=== PATIENT | male | born 1985 | race Caucasian/White ===

== ENCOUNTER 2018-02-21 21:29 | Emergency (ER) | payer SELFPAY ==
[2018-02-21 23:21] LABS: Urine Blood TRACE (NEG); Urine Glucose NEGATIVE (NEG); Urine Protein NEGATIVE (NEG); Urine pH 5.5 (5.0-7.0)
[2018-02-21] MEDS ORDERED: BISACODYL E.C. 5 MG TAB PO ONE (23:21)
[2018-02-21] MEDS ORDERED: BISACODYL 10 MG RECTAL SUPP ONE (23:21)
[2018-02-21 23:26] LABS: Urine Bacteria <20 /HPF (NONE SEEN); Urine Culture Reflex Order NOT NEEDED; Urine Mucus SLIGHT /HPF (NONE SEEN); Urine RBC <5 /HPF (NONE SEEN)
[2018-02-22] MEDS ORDERED: KETOROLAC 30 MG/ML INJ ONE (00:13)
--- NOTE | 2018-02-22 00:14 | EDPHYS ---
Physician Documentation [facility] Name: Lukasz Simon Age: 32 yrs Sex: Male : 1985 Arrival Date: 02/21/2018 Time: 21:33 Bed 16 Private MD: ED Physician Eleuterio Beverly HPI: 02/21 22:34 This 32 yrs old Male presents to ER via Ambulatory with complaints of Back snw Pain, Swollen Side of Abdomen. 22:34 The patient presents with pain that is acute, and decreased range of motion. The snw symptoms are located in the low back. Onset: The symptoms/episode began/occurred gradually, 1 week(s) ago, and became persistent. The problem was sustained from unknown cause. Severity of symptoms: At their worst the symptoms were moderate, severe. The patient has not experienced similar symptoms in the past. The patient has not recently seen a physician. Historical: - Allergies: 21:44 PENICILLINS; ak1 - Home Meds: 21:44 None [Active]; ak1 - PMHx: 21:44 None; ak1 - PSHx: 21:44 sinus sx as a child; ak1 - Immunization history:: Adult Immunizations unknown. - Social history:: Smoking status: Patient/guardian denies using tobacco. ROS: 22:33 Constitutional: Negative for fever, chills, and weight loss, Eyes: Negative for injury, snw pain, redness, and discharge, ENT: Negative for injury, pain, and discharge, Neck: Negative for injury, pain, and swelling, Cardiovascular: Negative for chest pain, palpitations, and edema, Respiratory: Negative for shortness of breath, cough, wheezing, and pleuritic chest pain, Abdomen/GI: Negative for abdominal pain, nausea, vomiting, diarrhea, and constipation, MS/Extremity: Negative for injury and deformity, Skin: Negative for injury, rash, and discoloration, Neuro: Negative for headache, weakness, numbness, tingling, and seizure. 22:33 Constitutional: Negative for fever, chills, and weight loss. 22:33 Back: Positive for decreased range of motion, pain with movement, of the low back area. 22:33 : Positive for small amounts, Negative for injury or acute deformity. Exam: 22:32 Constitutional: This is a well developed, well nourished patient who is awake, alert, snw and in no acute distress. Head/Face: Normocephalic, atraumatic. Eyes: Pupils equal round and reactive to light, extra-ocular motions intact. Lids and lashes normal. Conjunctiva and sclera are non-icteric and not injected. Cornea within normal limits. Periorbital areas with no swelling, redness, or edema. ENT: Nares patent. No nasal discharge, no septal abnormalities noted. Tympanic membranes are normal and external auditory canals are clear. Oropharynx with no redness, swelling, or masses, exudates, or evidence of obstruction, uvula midline. Mucous membranes moist. Neck: Trachea midline, no thyromegaly or masses palpated, and no cervical lymphadenopathy. Supple, full range of motion without nuchal rigidity, or vertebral point tenderness. No Meningismus. Chest/axilla: Normal chest wall appearance and motion. Nontender with no deformity. No lesions are appreciated. Cardiovascular: Regular rate and rhythm with a normal S1 and S2. No gallops, murmurs, or rubs. Normal PMI, no JVD. No pulse deficits. Respiratory: Lungs have equal breath sounds bilaterally, clear to auscultation and percussion. No rales, rhonchi or wheezes noted. No increased work of breathing, no retractions or nasal flaring. Abdomen/GI: Soft, non-tender, with normal bowel sounds. No distension or tympany. No guarding or rebound. No evidence of tenderness throughout. Skin: Warm, dry with normal turgor. Normal color with no rashes, no lesions, and no evidence of cellulitis. MS/ Extremity: Pulses equal, no cyanosis. Neurovascular intact. Full, normal range of motion. Neuro: Awake and alert, GCS 15, oriented to person, place, time, and situation. Cranial nerves II-XII grossly intact. Motor strength 5/5 in all extremities. Sensory grossly intact. Cerebellar exam normal. Normal gait. 22:32 Abdomen/GI: Soft, mildly tender, with normal bowel sounds. No distension or tympany. No guarding or rebound. No evidence of tenderness throughout. 22:32 Back: pain, that is moderate, muscle spasm, is appreciated in the low back area. Vital Signs: 21:44 BP 132 / 88; Pulse 99; Resp 20; Temp 98.1(TE); Pulse Ox 100% on R/A; Weight 108.86 kg ak1 (R); Height 6 ft. 3 in. (190.50 cm) (R); Pain 7/10; 22:29 BP 109 / 67; Pulse 83; Resp 18; Pulse Ox 100% on R/A; ea 23:30 BP 112 / 69; Pulse 74; Resp 18; Pulse Ox 98% on R/A; ea 02/22 00:00 BP 116 / 75; Pulse 79; Resp 18 S; Pulse Ox 98% on R/A; ea 02/21 21:44 Body Mass Index 30.00 (108.86 kg, 190.50 cm) ak1 MDM: 02/21 22:24 Patient medically screened. snw 02/22 00:17 Data reviewed: vital signs, nurses notes. Data interpreted: Pulse oximetry: on room air snw is 100 %. Interpretation: normal. Counseling: I had a detailed discussion with the patient and/or guardian regarding: the historical points, exam findings, and any diagnostic results supporting the discharge/admit diagnosis, lab results, the need for outpatient follow up, for definitive care, to return to the emergency department if symptoms worsen or persist or if there are any questions or concerns that arise at home. Special discussion: Based on the history and exam findings, there is no indication for further emergent testing or inpatient evaluation. I discussed with the patient/guardian the need to see the primary care provider for further evaluation of the symptoms. 02/21 22:23 Order name: Urine Microscopic Only; Complete Time: 23:34 snw 02/21 23:04 Order name: Urine Dipstick--Ancillary (enter results); Complete Time: 23:25 em1 02/21 22:23 Order name: CT Stone Protocol snw 02/21 22:23 Order name: Urine Dipstick-Ancillary (obtain specimen); Complete Time: 22:59 snw Administered Medications: 02/21 23:29 Drug: Bisacodyl 10 mg Route: PO; ea 02/22 00:19 Follow up: Response: No adverse reaction ea 00:18 Drug: TORadol 60 mg Route: IM; Site: left gluteus; ea 00:34 Follow up: Response: No adverse reaction ea 00:19 Not Given (Patient Refused): Dulcolax Suppository 10 mg ID once ea Disposition: 01:37 Co-signature as Attending Physician, Eleuterio Beverly MD. toño Disposition: 02/22/18 00:13 Discharged to Home. Impression: Low back pain, Constipation. - Condition is Stable. - Discharge Instructions: Back Pain, Adult, Constipation, Adult, High-Fiber Diet, Musculoskeletal Pain, Back Exercises, Badp-xb-Riew, Cryotherapy, Rehydration, Adult, Heat Therapy, Heat Therapy, [id number]. - Prescriptions for Diclofenac Sodium 75 mg Oral Tablet Sustained Release - take 1 tablet by ORAL route 2 times per day; 30 tablet. Miralax 17 gram/dose Oral - take 1 packet by ORAL route once daily dilute powder in 8 ounces of water or juice; 1 box. - Work release form, Medication Reconciliation Form, Thank You Letter, Antibiotic Education, Prescription Opioid Use form. - Follow up: Private Physician; When: 2 - 3 days; Reason: Recheck today's complaints, Continuance of care, Re-evaluation by your physician. Follow up: Emergency Department; When: As needed; Reason: Worsening of condition. Signatures: Dispatcher [employer] EDAK Eleuterio Beverly MD MD pkl Therrien, Shelly, SENIOR TALENT ACQUISITION SPECIALIST-C SENIOR TALENT ACQUISITION SPECIALIST-Csnw Maddi Vázquez RN RN ak1 Shital Hogan RN RN ea Corrections: (The following items were deleted from the chart) 00:34 00:13 02/22/2018 00:13 Discharged to Home. Impression: Low back pain; Constipation. ea Condition is Stable. Forms are Medication Reconciliation Form, Thank You Letter, Antibiotic Education, Prescription Opioid Use. Follow up: Private Physician; When: 2 - 3 days; Reason: Recheck today's complaints, Continuance of care, Re-evaluation by your physician. Follow up: Emergency Department; When: As needed; Reason: Worsening of condition. snw
--- NOTE | 2018-02-22 00:14 | ER ---
Nurse's Notes [facility] Name: Lukasz Simon Age: 32 yrs Sex: Male : 1985 Arrival Date: 02/21/2018 Time: 21:33 Bed 16 Private MD: Diagnosis: Low back pain;Constipation Presentation: 02/21 21:42 Presenting complaint: Patient states: back pain X1 week. pt stated his left side of his ak1 abd is swollen, pt c/o right flank is swollen. pt stated he has a decrease in urine flow. pt has been taking muscle relaxer from PCP. Transition of care: patient was not received from another setting of care. Onset of symptoms is unknown. Initial Sepsis Screen: Does the patient meet any 2 criteria? No. Patient's initial sepsis screen is negative. Does the patient have a suspected source of infection? No. Patient's initial sepsis screen is negative. Care prior to arrival: None. 21:42 Method Of Arrival: Ambulatory ak1 21:42 Acuity: JULIANA 3 ak1 Triage Assessment: 21:44 General: Appears uncomfortable, Behavior is calm, cooperative. Pain: Complains of pain ak1 in back and abdomen. EENT: No signs and/or symptoms were reported regarding the EENT system. Neuro: No deficits noted. Cardiovascular: No deficits noted. Respiratory: No deficits noted. GI: Abdomen is round Bowel sounds present X 4 quads. : Reports decreased urine flow. Derm: No signs and/or symptoms reported regarding the dermatologic system. Musculoskeletal: Range of motion: limited in back. Historical: - Allergies: 21:44 PENICILLINS; ak1 - Home Meds: 21:44 None [Active]; ak1 - PMHx: 21:44 None; ak1 - PSHx: 21:44 sinus sx as a child; ak1 - Immunization history:: Adult Immunizations unknown. - Social history:: Smoking status: Patient/guardian denies using tobacco. Screenin:45 Abuse screen: Denies threats or abuse. Denies injuries from another. Nutritional ak1 screening: No deficits noted. Tuberculosis screening: No symptoms or risk factors identified. Fall Risk None identified. Assessment: 22:26 General: Appears uncomfortable, Behavior is calm, cooperative, appropriate for age. ea Pain: Complains of pain in low back area, left low back, right low back, posterior aspect of left lateral abdomen and posterior aspect of right lateral abdomen Pain currently is 6 out of 10 on a pain scale. Quality of pain is described as aching, Pain began last friday. Neuro: Level of Consciousness is awake, alert, obeys commands, Oriented to person, place, time, situation. Cardiovascular: Patient's skin is warm and dry. Respiratory: Airway is patent Respiratory effort is even, unlabored, Respiratory pattern is regular, symmetrical. GI:. : Reports burning with urination, dribbling. Derm: Skin is pink, warm \T\ dry. 23:00 Reassessment: Patient and/or family updated on plan of care and expected duration. Pain ea level reassessed. Patient is alert, oriented x 3, equal unlabored respirations, skin warm/dry/pink. 02/22 00:29 Reassessment: Patient and/or family updated on plan of care and expected duration. Pain ea level reassessed. Patient is alert, oriented x 3, equal unlabored respirations, skin warm/dry/pink. Discharge instructions given to patient, verbalized understanding of instruciton. Vital Signs: 02/21 21:44 BP 132 / 88; Pulse 99; Resp 20; Temp 98.1(TE); Pulse Ox 100% on R/A; Weight 108.86 kg ak1 (R); Height 6 ft. 3 in. (190.50 cm) (R); Pain 7/10; 22:29 BP 109 / 67; Pulse 83; Resp 18; Pulse Ox 100% on R/A; ea 23:30 BP 112 / 69; Pulse 74; Resp 18; Pulse Ox 98% on R/A; ea 02/22 00:00 BP 116 / 75; Pulse 79; Resp 18 S; Pulse Ox 98% on R/A; ea 02/21 21:44 Body Mass Index 30.00 (108.86 kg, 190.50 cm) ak1 ED Course: 02/21 21:33 Patient arrived in ED. do 21:43 Triage completed. ak1 21:44 Arm band placed on Patient placed in waiting room, Patient notified of wait time. ak1 21:45 Patient has correct armband on for positive identification. ak1 22:15 Shital Hogan, RIO is Primary Nurse. ea 22:22 Thea Bonds FNP-C is PHCP. snw 22:22 Eleuterio Beverly MD is Attending Physician. snw 22:46 CT completed. Patient moved to CT via wheelchair. Patient moved back from CT. cw1 22:52 CT Stone Protocol In Process Unspecified. EDMS 02/22 00:19 No provider procedures requiring assistance completed. Patient did not have IV access ea during this emergency room visit. Administered Medications: 02/21 23:29 Drug: Bisacodyl 10 mg Route: PO; ea 02/22 00:19 Follow up: Response: No adverse reaction ea 00:18 Drug: TORadol 60 mg Route: IM; Site: left gluteus; ea 00:34 Follow up: Response: No adverse reaction ea 00:19 Not Given (Patient Refused): Dulcolax Suppository 10 mg WA once ea Outcome: 00:13 Discharge ordered by . snw 00:32 Discharged to home ambulatory. ea 00:32 Condition: improved 00:32 Discharge instructions given to patient, Instructed on discharge instructions, follow up and referral plans. medication usage, Demonstrated understanding of instructions, follow-up care, medications, Prescriptions given X 2. 00:34 Patient left the ED. ea Signatures: Dispatcher [employer] EDMA Thea Bonds, TSO-C TSO-Csnw Rhea Bennett cw1 Maddi Vázquez, RN RN ak1 Mary Grace Lucero Elena, RN RN ea
--- NOTE | 2018-02-22 14:44 | RAD REPORT ---
EXAM DESCRIPTION: CT - Stone Protocol - 02/22/2018 6:34 am CLINICAL HISTORY: Flank pain. COMPARISON: None. TECHNIQUE: Axial images were obtained without oral or IV contrast. Lack of contrast limits solid org an and vascular assessment. The [id number] spans the entirety of the system partially obscuring uppermost abdomen and lung bases. Coronal reformatted images were obtained and reviewed. All CT scans are performed using dose optimization technique as appropriate and may include automated exposure control or mA/KV adjustment according to patient size. FINDINGS: The lower lung gonzales are clear. Imaged portions of the liver and spleen show no suspicious findings on non-contrast imaging. The panc reas and adrenal glands are normal. No pathologic lymphadenopathy in the abdomen or pelvis. No urinary tract stones or obstructive uropathy. No bowel obstruction, free air, free fluid or abscess. Normal appendix noted. L5-S1 mild to moderate spondylosis. IMPRESSION: No urinary tract stones or obstructive uropathy.
== END 2018-02-22 00:34 | disposition home or self-care (01) ==
LOC: ER 21:29
DX: K59.00 Constipation, unspecified (principal); Z88.0 Allergy status to penicillin
CPT/HCPCS: 74176; 76377; 81003; 81015; 96372; 99284

== ENCOUNTER 2020-04-17 01:41 | Emergency (ER) | payer OTHER, SELFPAY ==
[2020-04-17] MEDS ORDERED: TETANUS & DIPHTHERIA TOX,ADULT 0.5 ML VIAL ONE (02:12)
--- NOTE | 2020-04-17 02:21 | ER ---
Nurse's Notes [facility] Name: Lukasz Simon Age: 34 yrs Sex: Male : 1985 Arrival Date: 04/17/2020 Time: 01:42 Bed 15 Private MD: Diagnosis: Displaced fracture of distal phalanx of right little finger Presentation: 04/17 01:47 Chief complaint: EMS states: his right hand was stucked in the conveyor belt and mg2 sustained laceration in the right little finger and swelling in the right hand. Coronavirus screen: Proceed with normal triage. Patient denies a cough. Patient denies shortness of breath or difficulty breathing. Patient denies measured and/or subjective temperature greater than 100.4F prior to today's visit. Patient denies travel on a cruise ship or to a country the [facility] currently lists as an affected area. Patient denies contact with known and/or suspected case of COVID-19. Ebola Screen: No symptoms or risks identified at this time. Initial Sepsis Screen: Does the patient meet any 2 criteria? No. Patient's initial sepsis screen is negative. Does the patient have a suspected source of infection? No. Patient's initial sepsis screen is negative. Risk Assessment: Do you want to hurt yourself or someone else? Patient reports no desire to harm self or others. Onset of symptoms was April 17, 2020. 01:47 Method Of Arrival: EMS: [facility] [place] 01:[place] Acuity: JULIANA 3 mg2 Triage Assessment: 01:52 General: Appears in no apparent distress. comfortable, Behavior is calm, cooperative. mg2 Pain: Complains of pain in right hand Pain currently is 2 out of 10 on a pain scale. Quality of pain is described as aching, Pain began suddenly, 1 hour ago. Is intermittent. EENT: No signs and/or symptoms were reported regarding the EENT system. Neuro: Level of Consciousness is awake, alert, obeys commands, Oriented to person, place, time, situation. Cardiovascular: Capillary refill < 3 seconds Patient's skin is warm and dry. Respiratory: Airway is patent Respiratory effort is even, unlabored, Respiratory pattern is regular, symmetrical. GI: No signs and/or symptoms were reported involving the gastrointestinal system. : No signs and/or symptoms were reported regarding the genitourinary system. Derm: Wound noted right little finger Wound is laceration approx. 1 inch long, with small active bleeding. Musculoskeletal: Circulation, motion, and sensation intact. Capillary refill < 3 seconds, Swelling present in right hand. Injury Description: Laceration. Historical: - Allergies: 01:51 PENICILLINS; mg2 01:51 Codeine; mg2 - Home Meds: 01:51 Celexa Oral [Active]; cholesterol medicine [Active]; mg2 - PMHx: 01:51 Anxiety; Hyperlipidemia; mg2 - PSHx: 01:51 None; mg2 - Immunization history:: Last tetanus immunization: < 5 years ago Flu vaccine is not up to date. - Social history:: Smoking status: Patient denies any tobacco usage or history of. Patient uses alcohol, occasionally. Patient/guardian denies using street drugs, IV drugs, The patient lives alone. - Family history:: not pertinent. Screenin:54 Abuse screen: Denies threats or abuse. Denies injuries from another. Nutritional mg2 screening: No deficits noted. Tuberculosis screening: No symptoms or risk factors identified. Fall Risk None identified. Assessment: 01:54 General: see triage note. mg2 Vital Signs: 01:47 BP 134 / 95; Pulse 90; Resp 18; Temp 99; Pulse Ox 100% on R/A; Weight 106.59 kg; Height mg2 6 ft. 3 in. (190.50 cm); Pain 2/10; 03:04 BP 133 / 78; Pulse 80; Resp 18; Temp 98; Pulse Ox 100% on R/A; mg2 01:47 Body Mass Index 29.37 (106.59 kg, 190.50 cm) mg2 ED Course: 01:42 Patient arrived in ED. mg2 01:46 Vance Thompson MD is Attending Physician. ma2 01:47 Db Ayers, RIO is Primary Nurse. mg2 01:49 Triage completed. mg2 01:52 Arm band placed on. EKG completed in triage. Results shown to MD. mg2 01:54 Patient has correct armband on for positive identification. mg2 01:54 Patient did not have IV access during this emergency room visit. mg2 02:18 XRAY Hand RIGHT 3 View In Process Unspecified. EDMS 02:19 Wrist Right 3 View XRAY In Process Unspecified. EDMS 03:03 No provider procedures requiring assistance completed. Aluminum finger splint applied mg2 to right little finger. Wound care: to crushed injury in the right little finger, surgicel applied with coband. Administered Medications: 02:10 Drug: Tetanus-Diphtheria Toxoid Adult 0.5 ml {Print And Pattern Designer: [employer]. Exp: mg2 12/03/2021. Lot #: [id number]. } Route: IM; Site: right deltoid; 02:41 Follow up: Response: No adverse reaction mg2 02:42 Drug: Clindamycin 300 mg Route: PO; mg2 03:03 Follow up: Response: No adverse reaction; Medication administered at discharge. mg2 Outcome: 02:20 Discharge ordered by MD. paz 03:04 Discharged to home ambulatory. mg2 03:04 Condition: stable 03:04 Discharge instructions given to patient, Instructed on discharge instructions, follow up and referral plans. medication usage, Demonstrated understanding of instructions, follow-up care, medications, wound care, splint care, Prescriptions given X 2. 03:04 Patient left the ED. mg2 Signatures: Dispatcher [employer] EDMS Vance Thompson MD MD ma2 Db Ayers RN RN mg2
--- NOTE | 2020-04-17 02:21 | EDPHYS ---
Physician Documentation [facility] Name: Lukasz Simon Age: 34 yrs Sex: Male : 1985 Arrival Date: 04/17/2020 Time: 01:42 Bed 15 Private MD: ED Physician Vance Thompson HPI: 04/17 02:15 This 34 yrs old Male presents to ER via EMS with complaints of 5th finger ma2 crush injury. 02:15 The patient or guardian reports deformity. Onset: The symptoms/episode began/occurred ma2 suddenly, 1 hour(s) ago. Associated signs and symptoms: Pertinent negatives: fever, nausea, numbness distally, tingling distally. Severity of symptoms: At their worst the symptoms were mild, in the emergency department the symptoms are unchanged. Historical: - Allergies: 01:51 PENICILLINS; mg2 01:51 Codeine; mg2 - Home Meds: 01:51 Celexa Oral [Active]; cholesterol medicine [Active]; mg2 - PMHx: 01:51 Anxiety; Hyperlipidemia; mg2 - PSHx: 01:51 None; mg2 - Immunization history:: Last tetanus immunization: < 5 years ago Flu vaccine is not up to date. - Social history:: Smoking status: Patient denies any tobacco usage or history of. Patient uses alcohol, occasionally. Patient/guardian denies using street drugs, IV drugs, The patient lives alone. - Family history:: not pertinent. ROS: 02:15 Constitutional: Negative for fever, chills, and weight loss. ma2 02:15 All other systems are negative. Exam: 02:15 Constitutional: This is a well developed, well nourished patient who is awake, alert, ma2 and in no acute distress. Head/Face: Normocephalic, atraumatic. Eyes: Pupils equal round and reactive to light, extra-ocular motions intact. Lids and lashes normal. Conjunctiva and sclera are non-icteric and not injected. Cornea within normal limits. Periorbital areas with no swelling, redness, or edema. ENT: Nares patent. No nasal discharge, no septal abnormalities noted. Tympanic membranes are normal and external auditory canals are clear. Oropharynx with no redness, swelling, or masses, exudates, or evidence of obstruction, uvula midline. Mucous membranes moist. Neck: Trachea midline, no thyromegaly or masses palpated, and no cervical lymphadenopathy. Supple, full range of motion without nuchal rigidity, or vertebral point tenderness. No Meningismus. Chest/axilla: Normal chest wall appearance and motion. Nontender with no deformity. No lesions are appreciated. Cardiovascular: Regular rate and rhythm with a normal S1 and S2. No gallops, murmurs, or rubs. Normal PMI, no JVD. No pulse deficits. Respiratory: Lungs have equal breath sounds bilaterally, clear to auscultation and percussion. No rales, rhonchi or wheezes noted. No increased work of breathing, no retractions or nasal flaring. Abdomen/GI: Soft, non-tender, with normal bowel sounds. No distension or tympany. No guarding or rebound. No evidence of tenderness throughout. MS/ Extremity: swelling of distal phalanx of right 5th finger, with superficial laceration of nail and nail bed that is 4 mm, however d/t swelling, there is no posibilities of primary repaire with sutures d/t swelling.. Pulses equal, no cyanosis. Neurovascular intact. Full, normal range of motion. Neuro: Awake and alert, GCS 15, oriented to person, place, time, and situation. Cranial nerves II-XII grossly intact. Motor strength 5/5 in all extremities. Sensory grossly intact. Cerebellar exam normal. Normal gait. Vital Signs: 01:47 BP 134 / 95; Pulse 90; Resp 18; Temp 99; Pulse Ox 100% on R/A; Weight 106.59 kg; Height mg2 6 ft. 3 in. (190.50 cm); Pain 2/10; 03:04 BP 133 / 78; Pulse 80; Resp 18; Temp 98; Pulse Ox 100% on R/A; mg2 01:47 Body Mass Index 29.37 (106.59 kg, 190.50 cm) mg2 MDM: 01:46 Patient medically screened. ma2 02:15 Differential diagnosis: contusion, abrasion, tendonitis. Data reviewed: vital signs, ma2 nurses notes. Counseling: I had a detailed discussion with the patient and/or guardian regarding: the historical points, exam findings, and any diagnostic results supporting the discharge/admit diagnosis, the presence of at least one elevated blood pressure reading (>120/80) during this emergency department visit, the need for outpatient follow up. Response to treatment: the patient's symptoms have markedly improved after treatment. 04/17 01:50 Order name: XRAY Hand RIGHT 3 [place] [facility] [place] 01:50 Order name: Wrist Right 3 View XRAY mg2 04/17 02:14 Order name: Finger Splint; Complete Time: 03:03 ga2 04/17 02:22 Order name: Wound Care; Complete Time: 03:03 ma2 04/17 02:22 Order name: Wound dressing; Complete Time: 03:02 ma2 Administered Medications: 02:10 Drug: Tetanus-Diphtheria Toxoid Adult 0.5 ml {Field Operations Supervisor: [employer] Exp: mg2 12/03/2021. Lot #: [id number]. } Route: IM; Site: right deltoid; 02:41 Follow up: Response: No adverse reaction mg2 02:42 Drug: Clindamycin 300 mg Route: PO; mg2 03:03 Follow up: Response: No adverse reaction; Medication administered at discharge. mg2 Disposition: 04/17/20 02:20 Discharged to Home. Impression: Displaced fracture of distal phalanx of right little finger. - Condition is Stable. - Discharge Instructions: Finger Fracture, [id number]. - Prescriptions for Clindamycin HCl 300 mg Oral Capsule - take 1 capsule by ORAL route every 6 hours for 10 days; 40 capsule. Diclofenac Sodium 75 mg Oral Tablet Sustained Release - take 1 tablet by ORAL route 2 times per day; 30 tablet. - Medication Reconciliation Form, Thank You Letter, Antibiotic Education, Prescription Opioid Use form. - Follow up: Private Physician; When: Tomorrow; Reason: Continuance of care. Signatures: Dispatcher [employer] EDMS Vance Thompson MD MD ma2 Db Ayers RN RN mg2 Corrections: (The following items were deleted from the chart) 03:04 02:20 04/17/2020 02:20 Discharged to Home. Impression: Displaced fracture of distal mg2 phalanx of right little finger. Condition is Stable. Prescriptions for Clindamycin HCl 300 mg Oral Capsule - take 1 capsule by ORAL route every 6 hours for 10 days; 40 capsule, Diclofenac Sodium 75 mg Oral Tablet Sustained Release - take 1 tablet by ORAL route 2 times per day; 30 tablet. and Forms are Medication Reconciliation Form, Thank You Letter, Antibiotic Education, Prescription Opioid Use. Follow up: Private Physician; When: Tomorrow; Reason: Continuance of care. ma2
[2020-04-17 03:10] VITALS: O2SAT 100
[2020-04-17 03:12] VITALS: BP 133/78; TEMP 98
--- NOTE | 2020-04-17 08:25 | RAD REPORT ---
EXAM DESCRIPTION: RAD - Hand Right 3 View - 04/17/2020 2:18 am CLINICAL HISTORY: SWELLING Laceration, pain COMPARISON: None FINDINGS: Right wrist and right hand- multiple projections are submitted Tuft fracture is noted involving the fifth finger. Moderate soft tissue swelling is seen adjacent to the fifth metacarpal as well. No dislocation. No radiopaque foreign body.
--- NOTE | 2020-04-17 10:23 | RAD REPORT ---
EXAM DESCRIPTION: RAD - Wrist Right 3 View - 04/17/2020 2:19 am CLINICAL HISTORY: SWELLING Laceration, pain COMPARISON: None FINDINGS: Right wrist and right hand- multiple projections are submitted Tuft fracture is noted involving the fifth finger. Moderate soft tissue swelling is seen adjacent to the fifth metacarpal as well. No dislocation. No radiopaque foreign body.
== END 2020-04-17 03:04 | disposition home or self-care (01) ==
LOC: ER 01:41
PROC: 2W3JX1Z Immobilization of Right Finger using Splint (ICD-10-PCS; principal; 2020-04-17)
DX: S62.636A Displaced fracture of distal phalanx of right little finger, initial encounter for closed fracture (principal); E78.5 Hyperlipidemia, unspecified; F41.9 Anxiety disorder, unspecified; Z88.0 Allergy status to penicillin; Z88.5 Allergy status to narcotic agent; Z23 Encounter for immunization
CPT/HCPCS: 90471; 90714; 99284